=== PATIENT | female | born 1955 | race Two or more races ===

== ENCOUNTER 2018-10-04 10:02 | Emergency (ER) | payer OTHER ==
[~2018-10-04] VITALS: Ht 147.3 cm; Wt 73.5 kg
[2018-10-04 10:07] VITALS: BP 152/92
[2018-10-04] MEDS ORDERED: NKM (10:10)
--- NOTE | 2018-10-04 10:17 | NUR ---
ED Nurse Note: per pt., her 5th digit of L hand got accidentally smashed by the door at work
--- NOTE | 2018-10-04 10:22 | Emergency Room Report ---
History of Present Illness General Chief Complaint: Upper Extremity Injury Source: Patient Present Illness HPI Patient presents with left little finger trauma. A door closed on it at 840 this morning. She has some numbness, swelling and pain. There is also bruising and discoloration of the skin. There is no bruise under the nail. Patient took 2 Tylenol earlier. The pain is still significant. Pain is rated 4 /10, throbbing and aching. It does not radiate. Patient denies diabetes or other major medical problems. She states that she has 1 kidney. 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 Because of this she cannot tolerate nonsteroidal anti-inflammatory medications. No fevers. She is right-handed. She does not take blood thinners. Allergies: Coded Allergies: No Known Allergies (Unverified , 10/04/18) Patient History Past Medical History: see triage record Past Surgical History: other - Left nephrectomy Social History Narrative Works at [employer] [facility] Reviewed Nursing Documentation: PMH: Agreed; PSxH: Agreed Nursing Documentation-PM Past Medical History: No Stated History Review of Systems Constitutional: Denies: fever Musculoskeletal: Reports: see HPI Skin: Reports: see HPI Neurological: Reports: see HPI Hematologic/Lymphatic: Reports: see HPI Physical Exam Vital Signs Date Time Temp Pulse Resp B/P (MAP) Pulse Ox O2 Delivery O2 Flow Rate FiO2 10/04/18 10:07 98.2 91 15 152/92 99 Room Air Sp02 EP Interpretation: reviewed, normal General Appearance: well appearing, no apparent distress, GCS 15 Head: normocephalic, atraumatic Eyes: bilateral eye normal inspection, bilateral eye PERRL ENT: hearing grossly normal, normal voice Neck: full range of motion, supple Respiratory: no respiratory distress, speaking full sentences Musculoskeletal: swelling, other - slight decrease flexion, but moves DP, MP and PP Neurologic: alert, motor strength/tone normal, sensory deficit - but able to feel Psychiatric: mood/affect normal Skin: other - petechial rash bilat, hematoma - [facility] Medical Decision Making Diagnostic Impression: Primary Impression: Fracture of phalanx of left little finger Qualified Codes: S62.657A - Nondisplaced fracture of middle phalanx of left little finger, initial encounter for closed fracture Additional Impression: Crush injury to finger Qualified Codes: S67.10XA - Crushing injury of unspecified finger(s), initial encounter ER Course Patient presents with left little finger injury. Differential includes fracture , contusion, crush injury amongst others. X-rays are indicated. In addition Percocet will be given. She states she cannot tolerate Motrin. X-rays reveal fracture middle phalanx. A splint was applied by the tech. Position was excellent. Distal neurovascular exam was normal as checked by me. The patient was also provided a sling. Patient stable for outpatient observation and treatment. She was advised that she needed to have follow-up to ensure that this fracture would heal properly. Other X-Ray Diagnostic Results Other X-Ray Diagnostic Results : X-Ray ordered: left hand # of Views/Limited Vs Complete: 3 View Indication: Other EP Interpretation: Yes Interpretation: no dislocation, other - middle phalynx spiral fx and swell Impression: Other Electronically Signed by: Electronically signed by Lawson Herrera MD Last Vital Signs Date Time Temp Pulse Resp B/P (MAP) Pulse Ox O2 Delivery O2 Flow Rate FiO2 10/04/18 12:41 97.9 70 17 145/80 100 Room Air Status: improved Disposition: HOME, SELF-CARE Condition: Improved Lawson Herrera MD Oct 04, 2018 10:22
[2018-10-04] MEDS ORDERED: oxyCODONE HCL/Acetaminophen 5/325mg ORAL ONE (10:30)
--- NOTE | 2018-10-04 11:32 | Diagnostic Imaging Report ---
LEFT HAND, Views INDICATION: Trauma COMPARISON: None FINDINGS: 3 views of the left hand are obtained. Spiral fracture of the fifth middle phalanx with extension into the distal interphalangeal joint space and volar angulation. Bone mineralization is within normal limits. Soft tissues within normal limits. No radio-opaque foreign bodies seen. IMPRESSION: Spiral fracture of the fifth middle phalanx with extension into the distal interphalangeal joint space and volar angulation.
[2018-10-04 12:41] VITALS: BP 145/80
--- NOTE | 2018-10-04 12:41 | NUR ---
ER DISCHARGE NOTE: Patient is cleared to be discharged per ERMD, pt is aox4, on room air, with stable vital signs. pt was given dc and prescription instructions, pt was able to verbalize understanding, pt id band removed. pt is able to ambulate with steady gait. pt took all belongings.
== END 2018-10-04 12:41 | disposition home or self-care (01) ==
LOC: EMR 12:00
DX: S62.657A Nondisplaced fracture of middle phalanx of left little finger, initial encounter for closed fracture (principal); S67.10XA Crushing injury of unspecified finger(s), initial encounter; S67.197A Crushing injury of left little finger, initial encounter; W23.0XXA Caught, crushed, jammed, or pinched between moving objects, initial encounter; Y92.9 Unspecified place or not applicable; Z90.5 Acquired absence of kidney
CPT/HCPCS: 29130; 99283